=== PATIENT | female | born 1955 | race Caucasian/White ===

== ENCOUNTER 2021-03-21 13:30 | Inpatient (IN) | payer OTHER ==
[2021-03-21] MEDS ORDERED: SODIUM CHLORIDE 1,000 ML IV STA ×2 (14:32→23:13)
[2021-03-21] MEDS ORDERED: ACETAMINOPHEN 1000 MG/100 ML VIAL (NON FORMULARY) IVPB ONE (14:32)
[2021-03-21] MEDS ORDERED: ACETAMINOPHEN INJECTION 100 ML IVPB ONE (14:49)
[2021-03-21 14:56] LABS: EPI CELLS 4 /uL (0-25.1); HYALINE CASTS 2 /uL (0-3.1); URINE APPEARANCE CLEAR; URINE BACTERIA 3 /uL (0-1359); URINE BILIRUBIN NEGATIVE (NEGATIVE); URINE COLOR YELLOW; URINE GLUCOSE (UA) 3+ (NEGATIVE); URINE KETONE NEGATIVE (NEGATIVE); URINE LEUK ESTERASE TRACE (NEGATIVE); URINE NITRITE NEGATIVE (NEGATIVE); URINE PROTEIN 1+ (NEGATIVE); URINE RBC 1 /uL (0-23.9); URINE UROBILINOGEN 0.2 mg/dL (0.2-1.0); URINE WBC 44 /uL (0-25.8)
[2021-03-21 15:15] LABS: BASO % 1.3 % (0-2.0); EOS % 2.8 % (0-4.5); HEMATOCRIT 38.9 % (32.4-45.2); HEMOGLOBIN 12.6 GM/dL (10.7-15.3); LYMPH % 26.4 % (8-40); MCH 27.9 pg (25.7-33.7); MCHC 32.4 g/dl (32.0-36.0); MEAN CELL VOLUME 86.2 fl (80-96); MEAN PLT VOLUME 8.5 fl (7.5-11.1); MONO % 7.1 % (3.8-10.2); NEUT % 62.4 % (42.8-82.8); PLATELET COUNT 294 10^3/uL (134-434); RBC 4.51 M/mm3 (3.60-5.2); RDW 15.2 % (11.6-15.6); WHITE BLOOD COUNT 9.4 K/mm3 (4.0-10.0)
[2021-03-21] MEDS ORDERED: PHENAZOPYRIDINE HCL 100 MG TABLET (FP) PO ONE (15:16)
[2021-03-21 15:20] LABS: INR 1.03 (0.83-1.09); PROTHROMBIN TIME (PATIENT) 12.7 SEC (9.7-13.0)
[2021-03-21 15:38] LABS: ALBUMIN 3.6 g/dl (3.4-5.0); BLOOD UREA NITROGEN 14.3 mg/dL (7-18); CALCIUM 9.1 mg/dL (8.5-10.1)
[2021-03-21 15:41] LABS: CREATININE 0.7 mg/dL (0.55-1.3)
[2021-03-21 15:43] LABS: BILIRUBIN,TOTAL 0.3 mg/dL (0.2-1)
[2021-03-21] MEDS ORDERED: PHENAZOPYRIDINE HCL 100 MG TABLET (FP) ONE (16:13)
[2021-03-21] MEDS ORDERED: CEFTRIAXONE 1 GM in DEXTROSE 5%-WATER - 100 ML IVPB ONE (16:25)
[2021-03-21] MEDS ORDERED: CEFTRIAXONE 1 GM/50 ML BAG ONE (16:34)
[2021-03-21] MEDS ORDERED: TAMSULOSIN HCL 0.4 MG CAP PO ONE (20:23)
[2021-03-21] MEDS ORDERED: KETOROLAC TROMETHAMINE 60 MG/2 ML VIAL IVPUSH ONE (20:23)
[2021-03-21] MEDS ORDERED: KETOROLAC TROMETHAMINE 15 MG/ML VIAL ONE (20:27)
[2021-03-21] MEDS ORDERED: TAMSULOSIN HCL 0.4 MG CAP ONE (20:27)
[2021-03-21] MEDS ORDERED: ACETAMINOPHEN 1000 MG/100 ML VIAL (NON FORMULARY) IVPB PRN (23:25)
[2021-03-22] MEDS: DEXTROSE 5%-0.45% SALINE 1,000 ML IV SCH ×3 (01:09→23:42)
[2021-03-22 02:26] VITALS: BMI 24.8
[2021-03-22] MEDS ORDERED: TAMSULOSIN HCL 0.4 MG CAP PO SCH (08:30)
[2021-03-22 08:52] LABS: BASO % 0.6 % (0-2.0); HEMOGLOBIN 11.4 GM/dL (10.7-15.3); LYMPH % 26.3 % (8-40); MCH 28.3 pg (25.7-33.7); MCHC 32.7 g/dl (32.0-36.0); MEAN CELL VOLUME 86.5 fl (80-96); MONO % 8.2 % (3.8-10.2); NEUT % 61.9 % (42.8-82.8); PLATELET COUNT 266 10^3/uL (134-434); RBC 4.04 M/mm3 (3.60-5.2); RDW 14.6 % (11.6-15.6); WHITE BLOOD COUNT 6.2 K/mm3 (4.0-10.0)
[2021-03-22] MEDS ORDERED: PT OWN MED DRAWER 7, Y5N ONE (09:05)
[2021-03-22] MEDS ORDERED: DEXTROSE 5%-WATER - 50 ML IVPB ONE (09:05)
[2021-03-22] MEDS ORDERED: cefTRIAXone SODIUM 1 GM VIAL ONE (09:05)
[2021-03-22] MEDS: CEFTRIAXONE 1 GM in DEXTROSE 5%-WATER - 50 ML IVPB SCH (09:20)
[2021-03-22 09:48] LABS: BILIRUBIN,TOTAL 0.3 mg/dL (0.2-1); CALCIUM 8.5 mg/dL (8.5-10.1); TOT PROT 6.4 g/dl (6.4-8.2)
[2021-03-22 09:49] LABS: BLOOD UREA NITROGEN 9.4 mg/dL (7-18)
[2021-03-22 09:51] LABS: CREATININE 0.6 mg/dL (0.55-1.3)
[2021-03-22] MEDS ORDERED: amLODIPine BESYLATE 5 MG TABLET (FP) PO SCH (10:00)
[2021-03-22] MEDS ORDERED: LISINOPRIL 20 MG TABLET PO SCH (10:00)
[2021-03-22] MEDS ORDERED: PATIENT'S OWN MEDICATION (NON-FORMULARY) (Amlodipine Besylate/Benazepril [Amlodipine-Benaz PO SCH (10:00)
[2021-03-22] MEDS ORDERED: traMADol HCL 50 MG TABLET PO PRN (11:21)
[2021-03-23] MEDS: TAMSULOSIN HCL 0.4 MG CAP PO SCH (08:43)
[2021-03-23] MEDS ORDERED: PT OWN MED DRAWER 7, Y5N ONE (09:23)
[2021-03-23] MEDS: amLODIPine BESYLATE 5 MG TABLET (FP) PO SCH (09:38)
[2021-03-23] MEDS: LISINOPRIL 20 MG TABLET PO SCH (09:38)
[2021-03-23] MEDS ORDERED: cefTRIAXone SODIUM 1 GM VIAL ONE (12:02)
[2021-03-23] MEDS ORDERED: DEXTROSE 5%-WATER - 50 ML IVPB ONE (12:03)
[2021-03-23] MEDS: CEFTRIAXONE 1 GM in DEXTROSE 5%-WATER - 50 ML IVPB SCH (12:05)
[2021-03-23] MEDS: DEXTROSE 5%-0.45% SALINE 1,000 ML IV SCH (20:25)
[2021-03-24 06:37] VITALS: BP 115/63; PULSE 53; TEMP 98.1
[2021-03-24] MEDS: LISINOPRIL 20 MG TABLET PO SCH (09:19)
[2021-03-24] MEDS: TAMSULOSIN HCL 0.4 MG CAP PO SCH (09:19)
[2021-03-24] MEDS: amLODIPine BESYLATE 5 MG TABLET (FP) PO SCH (09:19)
== END 2021-03-24 12:55 | disposition home or self-care (01) | DRG 690 ==
LOC: JER 13:30 → JERBED 21:25 → J8W 03-22 01:12
PROVIDERS: ADMIT Internal Medicine; ATTEND Internal Medicine
DX: N13.6 Pyonephrosis (principal); I10 Essential (primary) hypertension; E11.9 Type 2 diabetes mellitus without complications
CPT/HCPCS: 36415; 74018-TC-FY; 74177-TC; 80053; 81003; 82962; 85025; 85610; 87040; 87086; 93005; 93010; 99285-25; C9803; J0131; Q9967; U0003; U0005

== ENCOUNTER 2021-06-05 04:20 | Day surgery (SDC) | payer OTHER ==
[2021-06-04 15:53] VITALS: BMI 23.4
[2021-06-05] MEDS ORDERED: MIDAZOLAM HCL 2 MG/2 ML SINGLE DOSE VIAL ONE (13:09)
[2021-06-05] MEDS ORDERED: PHENYLEPHRINE HCL 10 MG/1 ML SINGLE DOSE VIAL ONE (13:13)
[2021-06-05] MEDS ORDERED: ceFAZolin 2 GRAM PREMIX BAG IVPB ONE (13:15)
[2021-06-05] MEDS ORDERED: IOHEXOL 300 MG/ML INFUS..BTL IV ONE (13:20)
[2021-06-05] MEDS ORDERED: oxyCODONE HCL 5 MG TABLET PO PRN (13:35)
[2021-06-05] MEDS ORDERED: ONDANSETRON 4 MG/2 ML VIAL IVPUSH PRN (13:35)
[2021-06-05] MEDS ORDERED: LACTATED RINGERS SOLUTION 1,000 ML IV SCH (13:45)
[2021-06-05 16:45] VITALS: BP 147/76; PULSE 94; TEMP 98.2
[2021-06-13 13:11] LABS: SIZE 3 X 3
[2021-06-13 13:12] LABS: CA OXALATE MONOHYDR. 100%; WEIGHT 31 MG
== END 2021-06-05 16:35 | disposition home or self-care (01) ==
LOC: JASU-SURG 04:20
PROVIDERS: ATTEND Urology
PROC: 0TC68ZZ Extirpation of Matter from Right Ureter, Via Natural or Artificial Opening Endoscopic (ICD-10-PCS; principal; 2021-06-05 13:30)
PROC: 0T9680Z Drainage of Right Ureter with Drainage Device, Via Natural or Artificial Opening Endoscopic (ICD-10-PCS; 2021-06-05 13:30)
DX: N20.1 Calculus of ureter (principal); N13.30 Unspecified hydronephrosis; K80.50 Calculus of bile duct without cholangitis or cholecystitis without obstruction; E11.9 Type 2 diabetes mellitus without complications
CPT/HCPCS: 36415; 76000-TC-FY; 82360; 82962; 87086; 87186; 88108; 94760

== ENCOUNTER 2021-10-09 04:11 | Day surgery (SDC) | payer OTHER ==
[2021-10-04 17:25] VITALS: BMI 24.4
[~2021-10-09 04:11] MED LIST: ceFAZolin SODIUM 1 GM VIAL IVPB ONE
[2021-10-09] MEDS ORDERED: ceFAZolin SODIUM 1 GM VIAL IVPB ONE (10:20)
[2021-10-09] MEDS ORDERED: MIDAZOLAM HCL 2 MG/2 ML SINGLE DOSE VIAL ONE (10:23)
[2021-10-09] MEDS ORDERED: KETAMINE HCL 200 MG/20 ML VIAL ONE (11:30)
[2021-10-09 11:49] VITALS: BP 122/67; PULSE 61; TEMP 97.3
== END 2021-10-09 12:45 | disposition home or self-care (01) ==
LOC: JASU-SURG 04:11
PROVIDERS: ATTEND Urology
PROC: 0TF3XZZ Fragmentation in Right Kidney Pelvis, External Approach (ICD-10-PCS; principal; 2021-10-09 09:45)
DX: N20.0 Calculus of kidney (principal)
CPT/HCPCS: 82962

== ENCOUNTER 2024-06-15 14:44 | Emergency (ER) | payer OTHER ==
[2024-06-15 15:22] VITALS: BP 137/70; PULSE 64; RESP 16; TEMP 98.6; BMI 24.4
[2024-06-15] MEDS ORDERED: LIDOCAINE 4% PATCH TP ONE (15:23)
[2024-06-15] MEDS ORDERED: ACETAMINOPHEN 500 MG TABLET (FP) ONE (15:24)
[2024-06-15] MEDS: LIDOCAINE 4% PATCH TP ONE (15:27)
[2024-06-15] MEDS: ACETAMINOPHEN 500 MG TABLET (FP) PO ONE (15:27)
== END 2024-06-15 16:10 | disposition home or self-care (01) ==
LOC: JERFT 14:44
DX: M54.50 Low back pain, unspecified (principal); M25.551 Pain in right hip; W18.30XA Fall on same level, unspecified, initial encounter
CPT/HCPCS: 73502-TC-RT-FY; 99283-25